=== PATIENT | female | born 1990 | race African-American/Black ===

== ENCOUNTER 2017-03-06 22:07 | Emergency (ER) | payer MEDICARE ==
[2017-03-06] MEDS ORDERED: Acetaminophen 500 MG TAB ONE (23:04)
== END 2017-03-06 23:10 | disposition home or self-care (01) ==
LOC: NAV ERS 22:07
DX: S29.011A Strain of muscle and tendon of front wall of thorax, initial encounter (principal); X50.0XXA Overexertion from strenuous movement or load, initial encounter; J45.909 Unspecified asthma, uncomplicated
CPT/HCPCS: 99284

== ENCOUNTER 2020-01-24 23:08 | Emergency (ER) | payer MEDICARE, MEDICAID | END 2020-01-24 23:53 | disposition home or self-care (01) | LOC: NAV ERS 23:08 | DX: T16.1XXA Foreign body in right ear, initial encounter (principal); J45.909 Unspecified asthma, uncomplicated | CPT/HCPCS: 69200 ==

== ENCOUNTER 2020-02-01 20:34 | Emergency (ER) | payer MEDICARE, MEDICAID | END 2020-02-01 21:21 | disposition home or self-care (01) | LOC: NAV ERS 20:34 | DX: Z32.00 Encounter for pregnancy test, result unknown (principal); J45.909 Unspecified asthma, uncomplicated; B20 Human immunodeficiency virus [HIV] disease | CPT/HCPCS: 99281 ==

== ENCOUNTER 2020-06-10 15:35 | Emergency (ER) | payer MEDICARE, MEDICAID | END 2020-06-10 16:30 | disposition home or self-care (01) | LOC: NAV ERS 15:35 | DX: Z20.822 Contact with and (suspected) exposure to COVID-19 (principal); J45.909 Unspecified asthma, uncomplicated | CPT/HCPCS: 99283 ==

== ENCOUNTER 2020-06-27 14:04 | Emergency (ER) | payer MEDICARE, MEDICAID ==
[2020-06-28 13:39] LABS: SARS-CoV-2 PCR by NAA Not Detected (NotDetected)
== END 2020-06-27 15:08 | disposition home or self-care (01) ==
LOC: NAV ERS 14:04
DX: R19.7 Diarrhea, unspecified (principal); Z20.822 Contact with and (suspected) exposure to COVID-19; Z21 Asymptomatic human immunodeficiency virus [HIV] infection status; J45.909 Unspecified asthma, uncomplicated
CPT/HCPCS: U0003; U0005; 87635; 99283

== ENCOUNTER 2020-07-07 22:34 | Emergency (ER) | payer MEDICARE, MEDICAID ==
[2020-07-07] MEDS ORDERED: Tetracaine HCl 0.5% Ophth Soln 2 ML Bottle ONE (22:56)
== END 2020-07-07 23:00 | disposition home or self-care (01) ==
LOC: NAV ERS 22:34
DX: T15.12XA Foreign body in conjunctival sac, left eye, initial encounter (principal); J45.909 Unspecified asthma, uncomplicated; Z79.899 Other long term (current) drug therapy

== ENCOUNTER 2020-10-05 14:53 | Emergency (ER) | payer MEDICARE, MEDICAID ==
[2020-10-06 01:14] LABS: SARS-CoV-2 PCR by NAA Not Detected (NotDetected)
== END 2020-10-05 16:09 | disposition home or self-care (01) ==
LOC: NAV ERS 14:53
DX: Z20.822 Contact with and (suspected) exposure to COVID-19 (principal); J45.909 Unspecified asthma, uncomplicated; Z21 Asymptomatic human immunodeficiency virus [HIV] infection status; Z79.899 Other long term (current) drug therapy
CPT/HCPCS: 87635; 99283; U0003; U0005

== ENCOUNTER 2021-07-15 16:50 | Emergency (ER) | payer MEDICAID, MEDICARE | END 2021-07-15 17:24 | disposition home or self-care (01) | LOC: NAV ERS 16:50 | DX: S60.447A External constriction of left little finger, initial encounter (principal); Z21 Asymptomatic human immunodeficiency virus [HIV] infection status; J45.909 Unspecified asthma, uncomplicated; W49.04XA Ring or other jewelry causing external constriction, initial encounter | CPT/HCPCS: 99283 ==

== ENCOUNTER 2021-09-12 21:38 | Emergency (ER) | payer MEDICARE | END 2021-09-12 22:04 | disposition home or self-care (01) | LOC: NAV ERS 21:38 | DX: S06.0X0A Concussion without loss of consciousness, initial encounter (principal); Z21 Asymptomatic human immunodeficiency virus [HIV] infection status; J45.909 Unspecified asthma, uncomplicated; Z79.899 Other long term (current) drug therapy; W20.8XXA Other cause of strike by thrown, projected or falling object, initial encounter | CPT/HCPCS: 99283 ==

== ENCOUNTER 2022-03-03 16:05 | Emergency (ER) | payer MEDICAID, MEDICARE, SELFPAY | END 2022-03-03 17:26 | disposition home or self-care (01) | LOC: NAV ERS 16:05 | DX: K04.7 Periapical abscess without sinus (principal); B20 Human immunodeficiency virus [HIV] disease; Z79.899 Other long term (current) drug therapy | CPT/HCPCS: 99282 ==

== ENCOUNTER 2022-05-06 14:53 | Emergency (ER) | payer MEDICARE, OTHER ==
[2022-05-06] MEDS ORDERED: Ibuprofen 800 MG TAB ONE (15:50)
== END 2022-05-06 16:08 | disposition home or self-care (01) ==
LOC: NAV ERS 14:53
DX: M25.511 Pain in right shoulder (principal); J45.909 Unspecified asthma, uncomplicated
CPT/HCPCS: 99283

== ENCOUNTER 2022-08-18 19:24 | Emergency (ER) | payer MEDICARE, OTHER | END 2022-08-18 20:27 | disposition home or self-care (01) | LOC: NAV ERS 19:24 | DX: J06.9 Acute upper respiratory infection, unspecified (principal); B20 Human immunodeficiency virus [HIV] disease; Z79.899 Other long term (current) drug therapy | CPT/HCPCS: 87804; 99283 ==

== ENCOUNTER 2023-04-11 10:33 | Emergency (ER) | payer MEDICARE ==
[2023-04-11] MEDS ORDERED: Ketorolac Tromethamine 30 MG/ML VIAL ONE (11:08)
[2023-04-11 11:11] LABS: #Eosinphils 0.4 thou/uL (0.0-0.7); #Lymphocytes 0.7 thou/uL (1.20-3.40); #Monocytes 0.4 thou/uL (0.11-0.59); #Neutrophils 1.9 thou/uL (1.40-6.50); %Basophils 1.1 % (0.0-1.0); %Eosinophils 10.9 % (0.0-10.0); %Lymphocytes 21.2 % (21.0-51.0); %Monocytes 12.6 % (0.0-10.0); %Neutrophils 54.3 % (42.0-75.0); Hematocrit 42.5 % (36.0-47.0); Hemoglobin 13.4 g/dL (12.0-16.0); Mean Corpuscular HGB CONC 31.6 g/dL (32.0-36.0); Mean Corpuscular Hemoglobin 27.3 pg (27.0-31.0); Mean Corpuscular Volume 86.4 fl (78.0-98.0); Mean Platelet Volume 8.7 fL (7.4-10.4); Platelet Count 216 10x3/uL (130-400); RBC Distribution Width 13.2 % (11.5-14.5); Red Blood Cell (RBC) Count 4.92 mill/uL (4.20-5.40); White Blood Cell (WBC) Count 3.5 10x3/uL (4.8-10.8)
[2023-04-11 11:26] LABS: Troponin I Less than 0.010 ng/mL (< 0.028)
[2023-04-11 11:28] LABS: Anion Gap 12 mmol/L (10-20); BUN (Urea Nitrogen) 9 mg/dL (7.0-18.7); Calc. Creatinine Clearance 0 mL/min (70-130); Carbon Dioxide 22 mmol/L (22-29); Chloride 108 mmol/L (98-107); Potassium 3.7 mmol/L (3.5-5.1); Sodium 138 mmol/L (136-145)
[2023-04-11 11:29] LABS: ALT (SGPT) 14 U/L (8-55); AST (SGOT) 16 U/L (5-34); Albumin 3.9 g/dL (3.5-5.0); Alkaline Phosphatase 74 U/L (40-110); Bilirubin, Total 0.5 mg/dL (0.2-1.2); Calcium 8.9 mg/dL (7.8-10.44); Estimated GFR 100; Globulin 3.9 g/dL (2.4-3.5); Glucose 93 mg/dL (70-105); Protein, Total 7.8 g/dL (6.0-8.3)
== END 2023-04-11 12:05 | disposition home or self-care (01) ==
LOC: NAV ERS 10:33
DX: R07.89 Other chest pain (principal); J45.909 Unspecified asthma, uncomplicated; B20 Human immunodeficiency virus [HIV] disease; Z79.899 Other long term (current) drug therapy
CPT/HCPCS: 71045; 80053; 84484; 85025; 93005; 94760; 96374; J1885

== ENCOUNTER 2023-06-05 15:02 | Emergency (ER) | payer MEDICARE | END 2023-06-05 17:06 | disposition home or self-care (01) | LOC: NAV ERS 15:02 | DX: M25.531 Pain in right wrist (principal); Z76.0 Encounter for issue of repeat prescription | CPT/HCPCS: 99281 ==

== ENCOUNTER 2023-11-03 20:54 | Emergency (ER) | payer MEDICARE ==
[2023-11-03 21:35] LABS: #Basophils 0.1 thou/uL (0.0-0.2); #Eosinphils 0.3 thou/uL (0.0-0.7); #Lymphocytes 1.4 thou/uL (1.20-3.40); #Monocytes 0.6 thou/uL (0.11-0.59); #Neutrophils 3.1 thou/uL (1.40-6.50); %Basophils 1.2 % (0.0-1.0); %Eosinophils 4.7 % (0.0-10.0); %Lymphocytes 25.2 % (21.0-51.0); %Monocytes 10.5 % (0.0-10.0); %Neutrophils 58.4 % (42.0-75.0); Hematocrit 38.4 % (36.0-47.0); Hemoglobin 11.8 g/dL (12.0-16.0); Mean Corpuscular HGB CONC 30.7 g/dL (32.0-36.0); Mean Corpuscular Hemoglobin 26.3 pg (27.0-31.0); Mean Corpuscular Volume 85.7 fl (78.0-98.0); Mean Platelet Volume 7.9 fL (7.4-10.4); Platelet Count 198 10x3/uL (130-400); RBC Distribution Width 12.3 % (11.5-14.5); Red Blood Cell (RBC) Count 4.47 mill/uL (4.20-5.40); White Blood Cell (WBC) Count 5.4 10x3/uL (4.8-10.8)
[2023-11-03 21:47] LABS: ALT (SGPT) 14 U/L (8-55); AST (SGOT) 17 U/L (5-34); Albumin 3.8 g/dL (3.5-5.0); Alkaline Phosphatase 63 U/L (40-110); Anion Gap 16 mmol/L (10-20); BUN (Urea Nitrogen) 11 mg/dL (7.0-18.7); Bilirubin, Total 0.4 mg/dL (0.2-1.2); Calc. Creatinine Clearance 0 mL/min (70-130); Calcium 8.8 mg/dL (7.8-10.44); Carbon Dioxide 20 mmol/L (22-29); Chloride 106 mmol/L (98-107); Estimated GFR 94; Globulin 3.4 g/dL (2.4-3.5); Glucose 85 mg/dL (70-105); Lipase 25 U/L (8-78); Potassium 3.7 mmol/L (3.5-5.1); Protein, Total 7.2 g/dL (6.0-8.3); Sodium 138 mmol/L (136-145)
[2023-11-03] MEDS ORDERED: Ibuprofen 200 MG TAB ONE (21:47)
[2023-11-03 21:49] LABS: Troponin I 0.011 ng/mL (< 0.028)
[2023-11-04 00:53] LABS: Troponin I Less than 0.010 ng/mL (< 0.028)
== END 2023-11-04 01:25 | disposition home or self-care (01) ==
LOC: NAV ERS 20:54
DX: R07.9 Chest pain, unspecified (principal); J45.909 Unspecified asthma, uncomplicated; B20 Human immunodeficiency virus [HIV] disease; Z79.899 Other long term (current) drug therapy
CPT/HCPCS: 71045; 80053; 83690; 84484; 85025; 93005

== ENCOUNTER 2023-11-16 23:00 | Emergency (ER) | payer MEDICARE ==
[2023-11-16] MEDS ORDERED: Acetaminophen 500 MG TAB ONE (23:27)
[2023-11-16] MEDS ORDERED: Aspirin Chewable 81 MG TAB ONE (23:28)
[2023-11-16 23:33] LABS: #Eosinphils 0.3 thou/uL (0.0-0.7); #Monocytes 0.4 thou/uL (0.11-0.59); %Eosinophils 5.8 % (0.0-10.0); %Lymphocytes 21.9 % (21.0-51.0); %Neutrophils 62.4 % (42.0-75.0); Hematocrit 38.6 % (36.0-47.0); Hemoglobin 12.4 g/dL (12.0-16.0); Mean Corpuscular HGB CONC 32.1 g/dL (32.0-36.0); Mean Corpuscular Hemoglobin 27.2 pg (27.0-31.0); Mean Platelet Volume 7.2 fL (7.4-10.4); Platelet Count 204 10x3/uL (130-400); RBC Distribution Width 12.2 % (11.5-14.5); Red Blood Cell (RBC) Count 4.54 mill/uL (4.20-5.40); White Blood Cell (WBC) Count 4.8 10x3/uL (4.8-10.8)
[2023-11-16 23:46] LABS: ALT (SGPT) 18 U/L (8-55); AST (SGOT) 21 U/L (5-34); Albumin 3.9 g/dL (3.5-5.0); Alkaline Phosphatase 57 U/L (40-110); Anion Gap 13 mmol/L (10-20); BUN (Urea Nitrogen) 11 mg/dL (7.0-18.7); Bilirubin, Total 0.5 mg/dL (0.2-1.2); Calc. Creatinine Clearance 0 mL/min (70-130); Calcium 9.1 mg/dL (7.8-10.44); Carbon Dioxide 23 mmol/L (22-29); Chloride 106 mmol/L (98-107); Estimated GFR 98; Globulin 3.8 g/dL (2.4-3.5); Glucose 92 mg/dL (70-105); Potassium 3.4 mmol/L (3.5-5.1); Protein, Total 7.7 g/dL (6.0-8.3); Sodium 139 mmol/L (136-145)
[2023-11-16 23:47] LABS: Troponin I Less than 0.010 ng/mL (< 0.028)
== END 2023-11-17 00:15 | disposition home or self-care (01) ==
LOC: NAV ERS 23:00
DX: R07.89 Other chest pain (principal); R11.0 Nausea; B20 Human immunodeficiency virus [HIV] disease; J45.909 Unspecified asthma, uncomplicated; Z79.899 Other long term (current) drug therapy
CPT/HCPCS: 71046; 80053; 84443; 84484; 85025; 93005

== ENCOUNTER 2024-02-15 09:47 | Emergency (ER) | payer MEDICARE ==
[2024-02-15] MEDS ORDERED: Ondansetron ODT 4 MG TAB ONE (10:07)
[2024-02-15 10:44] LABS: Bilirubin Negative (Negative); Blood, Urine Negative (Negative); Clarity Clear (Clear); Glucose, Urine (Dipstick) Negative (Negative); Ketone, Urine Negative (Negative); Leukocyte Negative (Negative); Nitrite Negative (Negative); Protein, Urine (Dipstick) 30 mg/dL (Neg-Trace); Urobilinogen 0.2 mg/dL (Less than 2)
[2024-02-15 10:52] LABS: Pregnancy Test - Urine (BHCG) Negative (Negative); Pregu Control Background? CLEAR/WHITE (CLR/WHITE); Pregu Control Bar Appear? YES (CONTROL BAR)
[2024-02-15 10:53] LABS: Bacteria/HPF None Seen HPF (None Seen); CAUTI Indications for Culture Pelvic or flank pain; RBC/HPF 0-3 HPF (0-3); Squamous Epithelial 0-3 HPF (0-3); WBC/HPF 0-3 HPF (0-3)
[2024-02-15 10:54] LABS: Urine Culture Reflex No No
[2024-02-15] MEDS ORDERED: Sodium Chloride 0.9% 1,000 ML ONE (11:58)
[2024-02-15] MEDS ORDERED: Ketorolac Tromethamine 30 MG (1 mL) VIAL ONE (11:58)
[2024-02-15 12:19] LABS: ALT (SGPT) 25 U/L (8-55); AST (SGOT) 28 U/L (5-34); Alkaline Phosphatase 68 U/L (40-110); Anion Gap 14 mmol/L (10-20); BUN (Urea Nitrogen) 14 mg/dL (7.0-18.7); Bilirubin, Total 0.5 mg/dL (0.2-1.2); Calc. Creatinine Clearance 0 mL/min (70-130); Calcium 9.1 mg/dL (7.8-10.44); Carbon Dioxide 22 mmol/L (22-29); Estimated GFR 93; Globulin 4.6 g/dL (2.4-3.5); Glucose 111 mg/dL (70-105); Lipase 14 U/L (8-78); Protein, Total 8.6 g/dL (6.0-8.3)
[2024-02-15 12:22] LABS: Chloride 108 mmol/L (98-107); Potassium 4.7 mmol/L (3.5-5.1); Sodium 140 mmol/L (136-145)
[2024-02-15 12:37] LABS: Hematocrit 46.5 % (36.0-47.0); Hemoglobin 14.6 g/dL (12.0-16.0); Mean Corpuscular HGB CONC 31.3 g/dL (32.0-36.0); Mean Corpuscular Hemoglobin 26.4 pg (27.0-31.0); Mean Corpuscular Volume 84.3 fl (78.0-98.0); Mean Platelet Volume 9.6 fL (7.4-10.4); Platelet Count 79 10x3/uL (130-400); RBC Distribution Width 11.6 % (11.5-14.5); Red Blood Cell (RBC) Count 5.52 mill/uL (4.20-5.40); White Blood Cell (WBC) Count 5.9 10x3/uL (4.8-10.8)
[2024-02-15 12:39] LABS: %Lymphocytes 3.7 % (21.0-51.0); %Neutrophils 91.6 % (42.0-75.0)
[2024-02-15 12:40] LABS: #Eosinphils 0.1 thou/uL (0.0-0.7); #Lymphocytes 0.2 thou/uL (1.20-3.40); #Monocytes 0.2 thou/uL (0.11-0.59); #Neutrophils 5.4 thou/uL (1.40-6.50); %Basophils 0.2 % (0.0-1.0); %Eosinophils 1.1 % (0.0-10.0); %Monocytes 3.4 % (0.0-10.0)
== END 2024-02-15 13:25 | disposition home or self-care (01) ==
LOC: NAV ERS 09:47
DX: R11.2 Nausea with vomiting, unspecified (principal); R19.7 Diarrhea, unspecified; B20 Human immunodeficiency virus [HIV] disease; J45.909 Unspecified asthma, uncomplicated; Z55.6 Problems related to health literacy; Z79.899 Other long term (current) drug therapy
CPT/HCPCS: 80053; 81001; 81025; 83690; 85025; 96374; J1885; J7030; Q0162

== ENCOUNTER 2024-05-30 09:38 | Emergency (ER) | payer MEDICARE, OTHER ==
[2024-05-30] MEDS ORDERED: Ibuprofen 200 MG TAB ONE (10:05)
[2024-05-30] MEDS ORDERED: Acetaminophen 500 MG TAB ONE (10:05)
[2024-05-30] MEDS ORDERED: Cyclobenzaprine 10 MG TAB ONE (10:06)
== END 2024-05-30 11:30 | disposition home or self-care (01) ==
LOC: NAV ERS 09:38
DX: M79.10 Myalgia, unspecified site (principal); B20 Human immunodeficiency virus [HIV] disease; J45.909 Unspecified asthma, uncomplicated; Z79.51 Long term (current) use of inhaled steroids
CPT/HCPCS: 99284

== ENCOUNTER 2024-12-07 02:28 | Emergency (ER) | payer MEDICARE, SELFPAY ==
[2024-12-07 03:06] LABS: #Basophils 0.1 thou/uL (0.0-0.2); #Eosinophils 0.4 thou/uL (0.0-0.7); #Lymphocytes 1.3 thou/uL (1.20-3.40); #Monocytes 0.5 thou/uL (0.11-0.59); #Neutrophils 2.3 thou/uL (1.40-6.50); %Basophils 1.5 % (0.0-1.0); %Eosinophils 7.9 % (0.0-10.0); %Lymphocytes 28.6 % (21.0-51.0); %Monocytes 10.0 % (0.0-10.0); %Neutrophils 51.9 % (42.0-75.0); Hematocrit 37.7 % (36.0-47.0); Hemoglobin 12.6 g/dL (12.0-16.0); Mean Corpuscular Hemoglobin 26.7 pg (27.0-31.0); Mean Corpuscular Volume 79.8 fl (78.0-98.0); Platelet Count 243 10x3/uL (130-400); Red Blood Cell (RBC) Count 4.72 mill/uL (4.20-5.40); White Blood Cell (WBC) Count 4.5 10x3/uL (4.8-10.8)
[2024-12-07 03:21] LABS: Troponin I Less than 0.010 ng/mL (< 0.028)
[2024-12-07 03:22] LABS: ALT (SGPT) 11 U/L (Less than 34); AST (SGOT) 27 U/L (11-34); Albumin 3.7 g/dL (3.1-4.5); Alkaline Phosphatase 50 U/L (40-110); Anion Gap 11 mmol/L (10-20); BUN (Urea Nitrogen) 10 mg/dL (7.0-18.7); Bilirubin, Total 0.4 mg/dL (0.3-1.2); Calc. Creatinine Clearance 0 mL/min (70-130); Calcium 8.6 mg/dL (7.8-10.44); Carbon Dioxide 24 mmol/L (22-29); Chloride 106 mmol/L (98-107); Globulin 3.7 g/dL (2.4-3.5); Glucose 95 mg/dL (70-105); Potassium 3.3 mmol/L (3.5-5.1); Sodium 138 mmol/L (136-145)
[2024-12-07 03:24] LABS: BHCG - Serum Negative (NEGATIVE); Pregs Control Bar Appear? YES (CONTROL BAR)
[2024-12-07] MEDS ORDERED: Lidocaine Viscous Sol 2% 15 ml UD Cup ONE (03:51)
[2024-12-07] MEDS ORDERED: Mag-Al Plus 1200/1200/120 MG (30 mL) UDCUP ONE (03:52)
[2024-12-07 06:17] LABS: Troponin I Less than 0.010 ng/mL (< 0.028)
== END 2024-12-07 07:40 | disposition home or self-care (01) ==
LOC: NAV ERS 02:28
DX: R07.9 Chest pain, unspecified (principal); F41.8 Other specified anxiety disorders; K21.9 Gastro-esophageal reflux disease without esophagitis; F41.1 Generalized anxiety disorder; B20 Human immunodeficiency virus [HIV] disease
CPT/HCPCS: 71046; 80053; 84484; 84703; 85025; 85379; 93005; 94760

== ENCOUNTER 2025-04-04 17:19 | Emergency (ER) | payer MEDICARE | END 2025-04-04 18:10 | disposition home or self-care (01) | LOC: NAV ERS 17:19 | DX: M54.6 Pain in thoracic spine (principal); B20 Human immunodeficiency virus [HIV] disease | CPT/HCPCS: 99283 ==

== ENCOUNTER 2025-04-26 07:51 | Emergency (ER) | payer MEDICARE ==
[2025-04-26 08:40] LABS: BHCG - Serum Negative (NEGATIVE); Pregs Control Bar Appear? YES (CONTROL BAR); White Blood Cell (WBC) Count 3.3 10x3/uL (4.8-10.8)
[2025-04-26 08:41] LABS: #Basophils 0.0 thou/uL (0.0-0.2); #Eosinophils 0.3 thou/uL (0.0-0.7); #Lymphocytes 0.8 thou/uL (1.20-3.40); #Monocytes 0.3 thou/uL (0.11-0.59); #Neutrophils 1.9 thou/uL (1.40-6.50); %Basophils 1.0 % (0.0-1.0); %Eosinophils 7.9 % (0.0-10.0); %Lymphocytes 24.5 % (21.0-51.0); %Monocytes 10.0 % (0.0-10.0); %Neutrophils 56.6 % (42.0-75.0); Hematocrit 39.4 % (36.0-47.0); Hemoglobin 13.0 g/dL (12.0-16.0); Manual Diff?? NO; Mean Corpuscular Hemoglobin 27.5 pg (27.0-31.0); Mean Corpuscular Volume 83.7 fl (78.0-98.0); Platelet Count 228 10x3/uL (130-400); Red Blood Cell (RBC) Count 4.71 mill/uL (4.20-5.40)
[2025-04-26 08:45] LABS: ALT (SGPT) 16 U/L (Less than 34); AST (SGOT) 34 U/L (11-34); Albumin 3.7 g/dL (3.1-4.5); Alkaline Phosphatase 60 U/L (40-110); Anion Gap 13 mmol/L (10-20); BUN (Urea Nitrogen) 10 mg/dL (7.0-18.7); Bilirubin, Total 0.4 mg/dL (0.3-1.2); Calc. Creatinine Clearance 0 mL/min (70-130); Calcium 9.1 mg/dL (7.8-10.44); Carbon Dioxide 19 mmol/L (22-29); Chloride 107 mmol/L (98-107); Globulin 4.2 g/dL (2.4-3.5); Glucose 96 mg/dL (70-105); Potassium 4.1 mmol/L (3.5-5.1); Sodium 135 mmol/L (136-145)
== END 2025-04-26 09:05 | disposition home or self-care (01) ==
LOC: NAV ERS 07:51
DX: J06.9 Acute upper respiratory infection, unspecified (principal); B20 Human immunodeficiency virus [HIV] disease; Z79.899 Other long term (current) drug therapy
CPT/HCPCS: 71046; 80053; 84703; 85025